=== PATIENT | female | born 1935 | race Caucasian/White ===

== ENCOUNTER → 2016-08-08 | Outpatient (CLI) | payer MEDICARE ==
[2015-12-12 12:45] VITALS: BP 169/84
[~2016-08-08] MED LIST: CALC600T4 PO; CHOL200024 PO; CHON250C PO; CLON0.1T PO; DIPH50CA25 PO; FERR-26 PO; FURO40TA4 PO; GLUCOSAMINE 1,1 EACH PO; HYDR12.58 PO; LEVO75TA PO; LISI10TA2 PO; LOSA100T6 PO; MELA3TAB PO; METO25PO2 MC; METO25TA4 PO; METO50TA2 PO; MULT-658 PO; POTA10TA5 PO; SENN1TAB70 PO; SIMV20TA3 PO; WARF-78 PO; WARF2.5T71 PO; WARF5TAB7 PO
[2016-08-08 13:59] LABS: BILIRUBIN,URINE NEGATIVE (NEG); GLUCOSE,URINE NEGATIVE (NEG); NITRITE,URINE NEGATIVE (NEG); PROTEIN,URINE NEGATIVE (NEG-TRACE); UROBILINOGEN,URINE 0.2 mg/dL (0.2 mg/dL)
[2016-08-08 14:07] LABS: BACTERIA,URINE 0 /HPF (0-FEW); RBC,URINE 0 /HPF (0-2); SQUAMOUS EPITHELIAL CELL,UR FEW /LPF
[2016-08-08 14:27] LABS: BASO % 1 % (0-3); EOS % 1 % (0-3); HEMATOCRIT 37.6 % (36.0-47.0); HEMOGLOBIN 12.2 g/dL (12.0-15.5); LYMPH # 1.2 x10^3/uL (1.0-4.8); LYMPH % 22 % (24-48); MEAN CORPUSCULAR HEMOGLOBIN 30 pg (25-35); MEAN CORPUSCULAR HGB CONC 33 g/dL (31-37); MEAN CORPUSCULAR VOLUME 93 fL (79-100); MONO % 7 % (0-9); NEUT % 69 % (31-73); PLATELET COUNT 159 x10^3/uL (140-400); RED BLOOD COUNT 4.02 x10^6/uL (3.50-5.40); RED CELL DISTRIBUTION WIDTH 14.2 % (11.5-14.5); WHITE BLOOD COUNT 5.4 x10^3/uL (4.0-11.0)
--- NOTE | 2016-08-08 14:27 | RAD ---
Indication: Preop for knee replacement surgery. Time of exam 1420 hours. Comparison is made with prior chest from 12/10/2015. The heart is enlarged but stable. A cardiac pacer has been placed since prior study. No pneumothorax is identified. The pulmonary vascularity is normal. There is no effusion. Impression: Cardiomegaly. No acute feature is detected.
[2016-08-08 14:36] LABS: INR 2.9 (0.8-1.1); PROTHROMBIN TIME PATIENT 28.8 SEC (11.7-14.0)
[2016-08-08 14:59] LABS: ALBUMIN 3.3 g/dL (3.4-5.0); CALCIUM 8.9 mg/dL (8.5-10.1); CREATININE 1.1 mg/dL (0.6-1.0); GFR 47.4; POTASSIUM 4.2 mmol/L (3.5-5.1)
== END | disposition home or self-care (01) ==
LOC: SURGPAT 12:47
PROVIDERS: ATTEND Orthopaedic Surgery
DX: Z01.818 Encounter for other preprocedural examination (principal); I51.7 Cardiomegaly
CPT/HCPCS: 36415; 71020; 80048; 81001; 82040; 85027; 85610; 85651; 85730; 87086; 87641

== ENCOUNTER 2016-08-23 11:19 | Inpatient (IN) | payer MEDICARE ==
--- NOTE | 2016-08-22 13:19 | PDOC1 ---
History and Physical Date of Admission Date of Admission DATE: 08/23/16 Identification/Chief Complaint Chief Complaint left knee osteoarthritis pain Problems: Source Source: Chart review History of Present Illness History of Present Illness Monique had right total knee arthroplasty performed on 05/12/15. She states that the right knee hurts a little but is otherwise working just fine. She is also here to discuss having total knee replacement on her left knee, which we had previously agreed to wait on until her syncope episodes were under control. She denies medication changes presently. 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 She has a history of atrial fibrillation. She is on warfarin. With her last total knee arthroplasty, we held her warfarin but did not do any bridging. She used meloxicam perioperatively last time. Past Medical History Cardiovascular: AFIB, CAD, HTN, Hyperlipidemia Pulmonary: No pertinent hx CENTRAL NERVOUS SYSTEM: Other GI: Diverticulosis Heme/Onc: Other Hepatobiliary: No pertinent hx Psych: No pertinent hx Musculoskeletal: low back pain, Osteoarthritis Rheumatologic: No pertinent hx Infectious disease: No pertinent hx Renal/: Other Endocrine: Hypothyroidism Past Surgical History Past Surgical History: Breast Biopsy, Cholecystectomy, Cataract Removal, Total knee replacement (right - 05/12/15), Hysterectomy, Other (cardiac stent - 2005) Family History Family History: Cancer, Coronary Artery Disease, Heart Disease, Hypertension, Stroke, Other (blood clots in daughter and son) Social History Smoke: No ALCOHOL: none Drugs: None Current Medications Current Medications Active Scripts Active Reported Melatonin 3 Mg Tablet 10 Mg PO HS Hydrochlorothiazide Tablet (Hydrochlorothiazide) 12.5 Mg Tablet 12.5 Mg PO PRN PRN Losartan Potassium 100 Mg Tablet 100 Mg PO HS Metoprolol Tartrate 50 Mg Tablet 50 Mg PO BID Coumadin (Warfarin Sodium) 5 Mg Tablet 1 Tab PO DAILY Stool Softener Tablet (Sennosides/Docusate Sodium) 1 Each Tablet 1 Each PO DAILY LAST DOSE GIVEN: DATE:05-15-15 TIME:9:00 a.m. NEXT DOSE DUE: DATE:05-16-15 TIME:9:00 a.m. Chondroitin Sulfate (Chondroitin Sulfate A) 250 Mg Capsule 250 Mg PO DAILY Not given while in hosp. May resume at home as directed. Glucosamine 1,500 Complex Cp (Gluc Scott/Chondro Scott A/Vit C/Mn) 1 Each Capsule 1 Each PO BID Not given while in hosp. May resume at home as directed D3 Dots (Cholecalciferol (Vitamin D3)) 2,000 Unit Tablet 2,000 Unit PO DAILY LAST DOSE GIVEN: DATE:05-15-15 TIME:9:00 a.m. NEXT DOSE DUE: DATE:05-16-15 TIME:9:00 a.m. Centrum Silver Tablet (Multivits-Min/Fa/Lycopene/Lut) 1 Each Tablet 1 Each PO DAILY LAST DOSE GIVEN: DATE:05-15-15 TIME:9:00 a.m. NEXT DOSE DUE: DATE:05-16-15 TIME:9:00 a.m. Calcium (Calcium Carbonate) 600 Mg Tablet 600 Mg PO BID Not given while in hosp. May resume at home as directed. Sleep Aid (Diphenhydramine Hcl) 50 Mg Capsule 50 Mg PO Not given while in hosp. May resume at home as directed as needed Synthroid (Levothyroxine Sodium) 75 Mcg Tablet 75 Mcg PO DAILY LAST DOSE GIVEN: DATE:05-15-15 TIME:9:00 a.m. NEXT DOSE DUE: DATE:05-16-15 TIME:9:00 a.m. Klor-Con 10 (Potassium Chloride) 10 Meq Tablet.er 10 Meq PO DAILY LAST DOSE GIVEN: DATE:05-15-15 TIME:9:00 a.m. NEXT DOSE DUE: DATE:05-16-15 TIME:9:00 a.m. Furosemide 40 Mg Tablet 40 Mg PO DAILY LAST DOSE GIVEN: DATE:05-15-15 TIME:9:00 a.m. NEXT DOSE DUE: DATE:05-16-15 TIME:9:00 a.m. Simvastatin 20 Mg Tablet 20 Mg PO HS LAST DOSE GIVEN: DATE:05-14-15 TIME:9:00 p.m. NEXT DOSE DUE: DATE:05-15-15 TIME:9:00 p.m. Allergies Allergies: Coded Allergies: Docusate Potassium (Verified Allergy, Intermediate, 08/08/16) Flurazepam HCl (Verified Allergy, Intermediate, 08/08/16) Penicillins (Verified Allergy, Intermediate, 08/08/16) Pentazocine Lactate (Verified Allergy, Intermediate, 08/08/16) casanthranol (Verified Allergy, Intermediate, 08/08/16) codeine (Verified Allergy, Intermediate, 08/08/16) EMPIRIN #3 desipramine HCl (Verified Allergy, Intermediate, 08/08/16) docusate sodium (Verified Allergy, Intermediate, 08/08/16) gadopentetate dimeglumine (Verified Allergy, Intermediate, 08/08/16) imipramine (Verified Allergy, Intermediate, 08/08/16) phenolphthalein (Verified Allergy, Intermediate, 08/08/16) propoxyphene HCl (Verified Allergy, Intermediate, 08/08/16) zolpidem tartrate (Verified Allergy, Intermediate, 08/08/16) latex (Verified Adverse Reaction, Intermediate, 08/08/16) UTI FROM THE LATEX CATHETER Physical Exam General: Alert, Oriented X3, Cooperative, No acute distress HEENT: Atraumatic, EOMI Lungs: Normal air movement Heart: RRR Abdomen: Soft Extremities: No clubbing, No cyanosis, Normal pulses, Other ( The left knee shows her mildly antalgic gait. There is varus alignment. No masses. No detectable effusion. Tenderness on the joint lines. Range of motion is 5-115 degrees. There is crepitus with range of motion, and pain at the extremes of motion. The knee is stable to varus and valgus stress without subluxation or laxity. Muscle strength is normal (5/5) for quadriceps and hamstrings, and muscle tone is normal. The skin is normal with no scars, rashes, lesions or ulcers. Light touch sensation is intact. No edema and no varicosities. Dorsalis pedis pulse is intact and capillary refill is normal. The right knee shows normal alignment, no masses and no effusion. No tenderness to palpation. Range of motion is 0-120 degrees, with typical total knee crepitus but no pain at the extremes of motion. The knee is stable to varus and valgus stress without subluxation or laxity. Muscle strength is normal (5/5) for quadriceps and hamstrings, and muscle tone is normal. The extensor mechanism is intact. The skin shows a well-healed midline scar from total knee arthroplasty. No drainage lesions or ulcers. Light touch sensation is intact. No edema and no varicosities. Dorsalis pedis pulse is intact and capillary refill is normal.) Skin: No rashes, No breakdown, No significant lesion Neuro: Normal speech, Sensation intact Psych/Mental Status: Mental status NL, Mood NL Images Images IMAGING REPORT Joint survey, hips knees and ankles Clinical information: Preoperative for total knee arthroplasty Comparison: None. Findings Bones: The angle between the right hip-ankle mechanical axis and the femoral shaft is 5. The angle between the left hip-ankle mechanical axis and the femoral shaft is 5 . There is a right total knee arthroplasty, and the mechanical line from the hip to the ankle crosses in the center of the right knee. The left knee shows varus alignment with the hip-ankle mechanical line crossing in the medial aspect of the left knee joint. Joints: The right knee has a total knee arthroplasty in good position. There is narrowing of the left knee joint medially. The hips and ankles show minimal degenerative changes. Soft tissue: Normal. Impression: Varus alignment of the left osteoarthritic knee. Right total knee arthroplasty in good position. The difference between the mechanical axis and femoral shaft anatomic axis is 5 bilaterally. Dictated and Signed Using Voice Recognition Software Yuriy Pinon MD VTE Prophylaxis Ordered VTE Prophylaxis Devices: Yes VTE Pharmacological Prophylaxi: Yes Assessment/Plan Assessment/Plan The left knee is now the painful one that limits her activity. She has tried nonoperative treatment without relief. She has done some home exercises, and had other nonoperative treatment. Her right total knee is doing well. Dr. Pinon recommended left knee arthroplasty despite her age of 81 years in the slightly increased risks associated with age. She does have atrial fibrillation, and we' ll need to get cardiac clearance. She is also having some recent blood pressure variation symptoms that will require clearance. We can schedule her left total knee arthroplasty at a mutually convenient date presumably in early July. We discussed the potential risks of infection, neurovascular injury, bleeding, blood clots, need for revision surgery, or other potential surgical or anesthetic complications. The parts for her right total knee done a year ago, include a size 5 femur (Legion) a size 4 Yessi II tibial base plate, and a 35 mm patella. All of her questions were answered and she desires to proceed at a mutually convenient date. PAMELA DIALLO August 22, 2016 13:19
[~2016-08-23] VITALS: Ht 170.2 cm; Wt 100.2 kg
[2016-08-23] VITALS (7 sets, daily range): BP systolic 129–149; BP diastolic 54–67
[~2016-08-23 11:19] MED LIST changes: +ACETAMINOPHEN 500 MG TABLET PO PRN; +CLINDAMYCIN 600MG PREMIX 50 ML IV PRN; +HYDROmorphone 2 MG/ML VIAL IV PRN; +IV RINGERS,LACTATED 1000ML 1,000 ML IV SCH; +LIDOCAINE 1% 1 ML SYRINGE. ID PRN; +MELOXICAM 7.5 MG TABLET PO PRN; +MORPHINE SULFATE 2 MG/ML DISP.SYRIN. IV PRN; +ONDANSETRON PF 4 MG/2 ML VIAL. IV PRN; +PROCHLORPERAZINE 10 MG/2 ML VIAL. IV PRN; +TOBRAMYCIN POWDER 1.2 GM VIAL. ONE; +TRANEXAMIC ACID 1,000 MG in IV NS 50ML -- 1ST BAG INJ ONE; +TRANEXAMIC ACID 1,000 MG in IV NS 50ML -- 2ND BAG INJ ONE; +VANCOMYCIN 1 GM VIAL. ONE; +fentaNYL PF VIAL 100 MCG/2 ML VIAL IV PRN
[2016-08-23] MEDS ORDERED: PROPOFOL 20 ML IV ONE (12:17)
[2016-08-23] MEDS ORDERED: LIDOCAINE 2% PF Vial for OR 5 ML VIAL. ONE (12:17)
[2016-08-23] MEDS ORDERED: DEXAMETHASONE SOD PHOS 20 MG/5 ML VIAL. ONE (12:17)
[2016-08-23] MEDS ORDERED: MELO15TA6 PO (12:18)
[2016-08-23] MEDS ORDERED: fentaNYL PF VIAL 100 MCG/2 ML VIAL ONE ×2 (12:18→13:56)
[2016-08-23] MEDS ORDERED: ROCURONIUM 50 MG/5 ML VIAL. ONE (12:18)
[2016-08-23] MEDS ORDERED: FAMOTIDINE 20 MG/2 ML VIAL ONE (12:18)
[2016-08-23] MEDS ORDERED: ONDANSETRON PF 4 MG/2 ML VIAL. ONE (12:18)
[2016-08-23 12:24] LABS: INR 1.2 (0.8-1.1); PROTHROMBIN TIME PATIENT 14.4 SEC (11.7-14.0)
[2016-08-23] MEDS ORDERED: hydrALAZINE 20 MG/ML VIAL. ONE (13:30)
[2016-08-23] MEDS ORDERED: 0.9 % SODIUM CHLORIDE 50 ML VIAL. IJ ONE (13:30)
[2016-08-23] MEDS ORDERED: NEOSTIGMINE 10 MG/10 ML VIAL. ONE (14:05)
[2016-08-23] MEDS ORDERED: GLYCOPYRROLATE 1 MG/5 ML VIAL. ONE (14:06)
[2016-08-23] MEDS ORDERED: SEVOFLURANE 61 TO 120 MINUTES. IH ONE (14:24)
--- NOTE | 2016-08-23 14:48 | PDOC4 ---
Operative Note Operative Note Date of Procedure: August 23, 2016 Pre-Op Diagnosis: Osteoarthritis left knee Post-Op Diagnosis: Osteoarthritis left knee Procedure: left total knee arthroplasty Surgeon: Craig Pinon MD Parts Manager: Sera Lambert PA-C Anesthesia: General EBL: 100 mL Specimens Obtained: left knee bone and soft tissue Complications: none Implant Company: [employer] Drains: Hemovac plus pain catheter Tourniquet time: 53 Minutes Tourniquet Pressure: 350 mm Hg Indications for Procedure: Arthritis pain unrelieved by nonoperative management. Findings: Severe osteoarthritis with bone on bone contact in all three compartments Implants used: Size 4 left bicruciate stabilized Journey II BCS cobalt chrome femoral component, size 4 left Journey nonporous tibial baseplate, size 3 -4 10 mm left Journey II BCS XLPE articular insert, 35 mm oval Yessi II resurfacing patellar component Procedure in Detail: The patient was identified in the preoperative holding area, and the correct left extremity was marked by me. The patient was taken to the operating room where the patient was anesthetized by the Department of Anesthesia. Preoperative antibiotics were given intravenously. Tranexamic acid 1 g was given intravenously for intraoperative hemostasis. A "time-out" procedure was performed. The patient was positioned supine on the operative table with a tourniquet on the upper thigh. The limb was thoroughly prepped and draped in sterile fashion. An impervious stockinet and adhesive drape were used such that the skin was entirely covered. An Mart leg luke was used. The operating team wore personal exhaust-ventilated hoods. The tourniquet was inflated to 350 mm Hg. A midline skin incision was made with a scalpel using the patella and tibial tubercle as landmarks. Electrocautery was used for hemostasis. My fundraising assistant used rake retractors. A medial parapatellar arthrotomy incision was used with extension into the distal quadriceps tendon. The patella was retracted laterally and Hohmann retractors were now used by my fundraising assistant. Excess synovium, the menisci, and the cruciate ligaments were resected sharply. The patella was assessed and excess synovium and osteophytes around the patellar articulation were removed. The patella was measured with a caliper, cut freehand with a saw using caliper measurements, sized, and then drilled for an oval three-pegged patella component. Periarticular injection was used in the suprapatellar pouch and distal quadriceps muscle. Whitesides's line was assessed on the femur. An intra-medullary 5 degree cutting guide was pinned to the femur, and a distal femoral cut was made with an oscillating saw. An additional 2 mm resection was used due to the deep femoral sulcus, and deficient condyle.My fundraising assistant held Hohmann retractors and an [place] retractor to protect the medial and lateral collateral ligaments, the patellar tendon, the skin and the other soft tissues. An anterior referencing guide was applied with external rotation of Choose an item. to match Whitesides line. A 5-in-1 Journey II cutting guide was then applied and pinned to the femur. The posterior, anterior, and all chamfer cuts were made with the oscillating saw. An extramedullary guide was pinned to the tibia and rotational alignment and the planned resection thickness assessed. An external alignment loc was used to verify the planned cut in the varus-valgus plane and regarding posterior slope referencing the tibial tubercle, the tibial shaft, the ankle joint, and the second metatarsal. The upper tibia was cut made with an oscillating saw. My fundraising assistant held Hohmann retractors and a posterior cruciate ligament retractor to protect the medial and lateral collateral ligaments, the patellar tendon, the skin, the peroneal nerve and the other soft tissues. The upper tibia was sized with a trial baseplate. The posterior compartment was cleared of osteophytes and loose bodies, and posterior capsule released. Annamarie-articular injection was used in the posterior compartment. The box cut for a posterior stabilized component was made. A preliminary reduction was performed with a trial femur, trial tibial baseplate and trial polyethylene. Soft-tissue balancing was now performed, and extension and rotation of the alignments was checked using a guide loc in the tibial trial and a guide pin in the femur. No additional releases were required. The stability was assessed using different thicknesses of tibial articular surface to find satisfactory stability and good range of motion. The rotation of the tibial component was marked on the upper tibia. Final trial reduction was now performed verifying patella tracking and tibiofemoral stability and alignment. The tibia preparation was completed with a drill, saw, and fin punch at the previously noted rotation. The final implants were verified and opened. Outer gloves were changed by the operating team. The bone cuts were washed thoroughly with the realSociable InterPulse device and dried. Two packages of Palacos bone cement were mixed in powdered form with 1 gm of Vancomycin and 1.2 g tobramycin, then vacuum-mixed with the monomer, and placed into a cement gun. The cut surfaces of the bone were thoroughly dried with Romano-tip suction and with laparotomy sponges for cement interdigitation. The final components were cemented into place. The knee was kept at full extension while the cement hardened, and excess cement was removed. Tranexamic acid 1 g was redosed intravenously for additional intraoperative hemostasis. A final periarticular injection was used for pain relief. The tourniquet was released, and electrocautery was used for hemostasis. A final check of [id number] and stability was made, and the polyethylene implant final size was chosen. The polyethylene implant was secured to the tibial baseplate, and the knee was reduced a final time. Thorough irrigation was used. Hemovac and pain catheter were used.The arthrotomy was closed with interrupted [id number] #1 PDS suture. The arthrotomy incision was then run with #1 STRATAFIX Symmetric PDS Plus Knotless suture. The subcutaneous tissues were closed with #2-0 Vicryl by my fundraising assistant. The skin was reapproximated with STRATAFIX Spiral MONOCRYL Plus Knotless suture by my fundraising assistant. The skin incision was then covered and reinforced with Dermabond Prineo mesh skin closure dressing. A bulky sterile gauze dressing was applied. Needle and sponge counts were correct. CRAIG PINON MD August 23, 2016 14:48
[2016-08-23] MEDS: fentaNYL PF VIAL 100 MCG/2 ML VIAL IV PRN ×3 (14:58→15:56)
[2016-08-23] MEDS ORDERED: traMADol 50 MG TABLET PO PRN ×2 (15:00)
[2016-08-23] MEDS ORDERED: METOCLOPRAMIDE HCL 10 MG/2 ML VIAL. IV PRN (15:00)
[2016-08-23] MEDS ORDERED: HYDROcodone/APAP 10/325 1 TAB TABLET PO PRN (15:00)
[2016-08-23] MEDS ORDERED: CALCIUM CARBONATE 500 MG TAB.CHEW PO PRN (15:00)
[2016-08-23] MEDS ORDERED: oxyCODONE/APAP 7.5/325 1 TAB TABLET PO PRN (15:00)
[2016-08-23] MEDS ORDERED: 0.9 % SODIUM CHLORIDE 10 ML DISP.SYRIN. IV PRN (15:00)
[2016-08-23] MEDS ORDERED: MORPHINE SULFATE 2 MG/ML DISP.SYRIN. IV PRN (15:00)
[2016-08-23] MEDS ORDERED: MORPHINE SULFATE 10 MG/ML VIAL. IV PRN (15:00)
[2016-08-23] MEDS ORDERED: MORPHINE SULFATE 4 MG/ML DISP.SYRIN. IV PRN ×2 (15:00)
[2016-08-23] MEDS ORDERED: fentaNYL PF VIAL 100 MCG/2 ML VIAL IV PRN ×2 (15:00)
[2016-08-23] MEDS ORDERED: DEXTROSE 50% 25 GM / 50ML DISP.SYRIN. IV PRN (15:00)
[2016-08-23] MEDS ORDERED: diphenhydrAMINE 50 MG/ML VIAL IV PRN (15:00)
[2016-08-23] MEDS ORDERED: PROCHLORPERAZINE 10 MG/2 ML VIAL. IV PRN (15:00)
[2016-08-23] MEDS ORDERED: oxyCODONE/APAP 5/325 1 TAB TABLET PO PRN (15:00)
[2016-08-23] MEDS ORDERED: ACETAMINOPHEN 325 MG TABLET. PO PRN (15:00)
[2016-08-23] MEDS ORDERED: PROCHLORPERAZINE 5 MG TABLET. PO PRN (15:00)
--- NOTE | 2016-08-23 15:08 | EKG ---
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
--- NOTE | 2016-08-23 15:56 | RAD ---
Portable left knee, 2 views, 08/23/2016: History: Postop evaluation A total knee prosthesis is in place in satisfactory position. A surgical drain overlie the operative site anteriorly. There is no evidence of a retained surgical instrument, needle or radiopaque sponge on these 2 views. IMPRESSION: No significant postoperative abnormality is detected.
[2016-08-23] MEDS: FERROUS SULFATE 325 MG TABLET. PO SCH (18:08)
[2016-08-23] MEDS: WARFARIN 5 MG TABLET. PO SCH (18:08)
[2016-08-23] MEDS: CLINDAMYCIN 600MG PREMIX 50 ML IV SCH ×2 (18:13→23:36)
[2016-08-23] MEDS ORDERED: NON FORMULARY ITEM (Melatonin 10 MG) PO SCH (21:00)
[2016-08-23] MEDS ORDERED: CELECOXIB 200 MG CAPSULE. PO SCH (21:00)
[2016-08-23] MEDS: SIMVASTATIN 20 MG TABLET PO SCH (21:13)
[2016-08-23] MEDS: METOPROLOL TART IMMED RELEASE 50 MG TABLET. PO SCH (21:14)
[2016-08-23] MEDS: LOSARTAN POTASSIUM 50 MG TABLET. PO SCH (21:15)
[2016-08-23] MEDS: IV DEXTROSE 5 %-0.45 % NACL 1,000 ML IV SCH (23:17)
[2016-08-24] MEDS: IV DEXTROSE 5 %-0.45 % NACL 1,000 ML IV SCH (02:30)
[2016-08-24 03:00] VITALS: BP 139/57
[2016-08-24 03:40] LABS: HEMATOCRIT 30.9 % (36.0-47.0); HEMOGLOBIN 10.3 g/dL (12.0-15.5)
[2016-08-24 04:04] LABS: INR 1.3 (0.8-1.1); PROTHROMBIN TIME PATIENT 15.1 SEC (11.7-14.0)
[2016-08-24] MEDS: CLINDAMYCIN 600MG PREMIX 50 ML IV SCH (05:46)
[2016-08-24 06:00] VITALS: BP 129/74
[2016-08-24] MEDS ORDERED: MAGNESIUM HYDROXIDE 2,400 MG/30 ML ORAL.SUSP. PO PRN (06:00)
[2016-08-24] MEDS: LEVOTHYROXINE 75 MCG TABLET PO SCH (07:05)
[2016-08-24] MEDS: FERROUS SULFATE 325 MG TABLET. PO SCH ×2 (08:02→16:45)
[2016-08-24] MEDS: POTASSIUM CHLORIDE 10 MEQ TABLET.ER. PO SCH (08:02)
[2016-08-24] MEDS: FUROSEMIDE 40 MG TABLET. PO SCH (08:02)
[2016-08-24] MEDS: SENNOSIDES 8.6 MG TABLET PO SCH (08:03)
[2016-08-24] MEDS: MELOXICAM 7.5 MG TABLET PO SCH (08:03)
[2016-08-24] MEDS: CHOLECALCIFEROL (VITAMIN D3) 1,000 UNIT TABLET PO SCH (08:03)
[2016-08-24] MEDS: MULTIVITAMIN with MINERAL TABLET. PO SCH (08:04)
[2016-08-24] MEDS: HYDROcodone/APAP 7.5/325MG 1 TAB TABLET PO PRN ×3 (08:04→20:36)
[2016-08-24] MEDS: METOPROLOL TART IMMED RELEASE 50 MG TABLET. PO SCH ×2 (08:05→20:38)
[2016-08-24] MEDS ORDERED: hydroCHLOROthiazide 12.5 MG CAPSULE PO PRN (09:00)
--- NOTE | 2016-08-24 09:48 | PDOC ---
PROGRESS NOTES Subjective Subjective No complaints. Doing well. Objective Vital Signs Vital Signs Date Time Temp Pulse Resp B/P (MAP) Pulse Ox O2 Delivery O2 Flow Rate FiO2 08/24/16 09:05 16 Room Air 08/24/16 08:05 72 129/74 08/24/16 06:00 97.8 94 2.0 97.8 Physical Exam Dressing dry and intact. Pain catheter and Hemovac in place. Good dorsiflexion and plantarflexion of the foot with no evidence of neurovascular injury or DVT. Calves are soft and non-tender. Negative Homans. Peripheral pulses and light touch sensation intact. Labs Laboratory Tests Test 08/23/16 12:00 08/24/16 02:57 Prothrombin Time 14.4 SEC (11.7-14.0) 15.1 SEC (11.7-14.0) Prothromb Time International Ratio 1.2 (0.8-1.1) 1.3 (0.8-1.1) Activated Partial Thromboplast Time 32 SEC (24-38) Hemoglobin 10.3 g/dL (12.0-15.5) Hematocrit 30.9 % (36.0-47.0) Mean Corpuscular Hemoglobin Concent 34 g/dL (31-37) Laboratory Tests Test 08/23/16 12:00 08/24/16 02:57 Prothrombin Time 14.4 SEC (11.7-14.0) 15.1 SEC (11.7-14.0) Prothromb Time International Ratio 1.2 (0.8-1.1) 1.3 (0.8-1.1) Activated Partial Thromboplast Time 32 SEC (24-38) Hemoglobin 10.3 g/dL (12.0-15.5) Hematocrit 30.9 % (36.0-47.0) Mean Corpuscular Hemoglobin Concent 34 g/dL (31-37) Imaging Postoperative x-rays reviewed by me, showing satisfactory total knee replacement , with no apparent complications. Assessment Assessment POD #1 TKA Problems: Plan Plan of Care Continue POC including DVT prophylaxis and physical therapy PAMELA DIALLO August 24, 2016 09:48
[2016-08-24] MEDS ORDERED: BISACODYL 10 MG SUPP.RECT. PR PRN (16:00)
[2016-08-24] MEDS: WARFARIN 5 MG TABLET. PO SCH (16:45)
[2016-08-24 17:58] VITALS: BP 132/65
[2016-08-24] MEDS: LOSARTAN POTASSIUM 50 MG TABLET. PO SCH (20:37)
[2016-08-24] MEDS: SIMVASTATIN 20 MG TABLET PO SCH (20:38)
[2016-08-25] MEDS: HYDROcodone/APAP 7.5/325MG 1 TAB TABLET PO PRN ×4 (01:06→21:00)
[2016-08-25 05:29] LABS: HEMATOCRIT 31.1 % (36.0-47.0); HEMOGLOBIN 10.5 g/dL (12.0-15.5)
[2016-08-25 05:32] LABS: INR 1.4 (0.8-1.1); PROTHROMBIN TIME PATIENT 16.3 SEC (11.7-14.0)
[2016-08-25 05:40] VITALS: BP 139/66
[2016-08-25] MEDS: LEVOTHYROXINE 75 MCG TABLET PO SCH (06:06)
[2016-08-25] MEDS: POTASSIUM CHLORIDE 10 MEQ TABLET.ER. PO SCH (08:10)
[2016-08-25] MEDS: MULTIVITAMIN with MINERAL TABLET. PO SCH (08:11)
[2016-08-25] MEDS: MELOXICAM 7.5 MG TABLET PO SCH (08:11)
[2016-08-25] MEDS: FERROUS SULFATE 325 MG TABLET. PO SCH ×2 (08:11→16:25)
[2016-08-25] MEDS: CHOLECALCIFEROL (VITAMIN D3) 1,000 UNIT TABLET PO SCH (08:11)
[2016-08-25] MEDS: SENNOSIDES 8.6 MG TABLET PO SCH (08:17)
[2016-08-25] MEDS: FUROSEMIDE 40 MG TABLET. PO SCH (08:18)
[2016-08-25] MEDS: METOPROLOL TART IMMED RELEASE 50 MG TABLET. PO SCH ×2 (08:22→21:00)
[2016-08-25] MEDS: WARFARIN 5 MG TABLET. PO SCH (16:25)
--- NOTE | 2016-08-25 17:30 | PDOC ---
PROGRESS NOTES Subjective Subjective Doing well. Only reports mild pain increase from yesterday. Objective Vital Signs Vital Signs Date Time Temp Pulse Resp B/P (MAP) Pulse Ox O2 Delivery O2 Flow Rate FiO2 08/25/16 12:31 Room Air 08/25/16 08:22 72 136/72 08/25/16 05:40 97.9 20 92 97.9 08/24/16 08:00 2.0 Physical Exam Expected swelling. Pain catheter and drain have been removed. Dressing with spotty drainage only. Calf soft and nontender. Negative homans sign. Good AROM ankle. Peripheral pulses and light touch sensation intact. Labs Laboratory Tests Test 08/24/16 02:57 08/25/16 04:50 Hemoglobin 10.3 g/dL (12.0-15.5) 10.5 g/dL (12.0-15.5) Hematocrit 30.9 % (36.0-47.0) 31.1 % (36.0-47.0) Mean Corpuscular Hemoglobin Concent 34 g/dL (31-37) 34 g/dL (31-37) Prothrombin Time 15.1 SEC (11.7-14.0) 16.3 SEC (11.7-14.0) Prothromb Time International Ratio 1.3 (0.8-1.1) 1.4 (0.8-1.1) Laboratory Tests Test 08/25/16 04:50 Hemoglobin 10.5 g/dL (12.0-15.5) Hematocrit 31.1 % (36.0-47.0) Mean Corpuscular Hemoglobin Concent 34 g/dL (31-37) Prothrombin Time 16.3 SEC (11.7-14.0) Prothromb Time International Ratio 1.4 (0.8-1.1) Imaging X-rays independently reviewed by me and show satisfactory TKA alignment and no apparent complications. Assessment Assessment POD 2 TKA Problems: Plan Plan of Care Continue DVT prophylaxis and physical therapy. Planned discharge tomorrow. Office F/U in 10-14 days. CRAIG BOWMAN MD August 25, 2016 17:30
[2016-08-25 17:59] VITALS: BP 155/61
[2016-08-25] MEDS: SIMVASTATIN 20 MG TABLET PO SCH (21:00)
[2016-08-25] MEDS: LOSARTAN POTASSIUM 50 MG TABLET. PO SCH (21:00)
[2016-08-26 04:33] LABS: INR 1.5 (0.8-1.1); PROTHROMBIN TIME PATIENT 17.5 SEC (11.7-14.0)
[2016-08-26] MEDS: HYDROcodone/APAP 7.5/325MG 1 TAB TABLET PO PRN ×2 (04:40→12:26)
[2016-08-26] MEDS: LEVOTHYROXINE 75 MCG TABLET PO SCH (04:40)
[2016-08-26 06:16] VITALS: BP 148/80
[2016-08-26] MEDS: FERROUS SULFATE 325 MG TABLET. PO SCH (08:22)
[2016-08-26] MEDS: POTASSIUM CHLORIDE 10 MEQ TABLET.ER. PO SCH (08:22)
[2016-08-26] MEDS: MULTIVITAMIN with MINERAL TABLET. PO SCH (08:23)
[2016-08-26] MEDS: MELOXICAM 7.5 MG TABLET PO SCH (08:23)
[2016-08-26] MEDS: CHOLECALCIFEROL (VITAMIN D3) 1,000 UNIT TABLET PO SCH (08:23)
[2016-08-26] MEDS: SENNOSIDES 8.6 MG TABLET PO SCH (08:23)
[2016-08-26] MEDS: FUROSEMIDE 40 MG TABLET. PO SCH (08:29)
[2016-08-26] MEDS: METOPROLOL TART IMMED RELEASE 50 MG TABLET. PO SCH (08:31)
[2016-08-26 09:28] LABS: HEMATOCRIT 30.1 % (36.0-47.0); HEMOGLOBIN 10.2 g/dL (12.0-15.5)
[2016-08-26 11:04] VITALS: BP 139/79
--- NOTE | 2016-08-26 14:09 | PDOC ---
PROGRESS NOTES Subjective Subjective Doing well. Planning for discharge later today after PT. Objective Vital Signs Vital Signs Date Time Temp Pulse Resp B/P (MAP) Pulse Ox O2 Delivery O2 Flow Rate FiO2 08/26/16 12:26 Room Air 08/26/16 11:04 97.9 78 20 139/79 (99) 97 97.9 08/25/16 20:16 2.0 Physical Exam Expected swelling. Prineo dressing intact and dry. Calf soft and nontender. Negative Homans. Good AROM ankle. Peripheral pulses and light touch sensation intact. Labs Laboratory Tests Test 08/25/16 04:50 08/26/16 03:30 Hemoglobin 10.5 g/dL (12.0-15.5) 10.2 g/dL (12.0-15.5) Hematocrit 31.1 % (36.0-47.0) 30.1 % (36.0-47.0) Mean Corpuscular Hemoglobin Concent 34 g/dL (31-37) 34 g/dL (31-37) Prothrombin Time 16.3 SEC (11.7-14.0) 17.5 SEC (11.7-14.0) Prothromb Time International Ratio 1.4 (0.8-1.1) 1.5 (0.8-1.1) Laboratory Tests Test 08/26/16 03:30 Hemoglobin 10.2 g/dL (12.0-15.5) Hematocrit 30.1 % (36.0-47.0) Mean Corpuscular Hemoglobin Concent 34 g/dL (31-37) Prothrombin Time 17.5 SEC (11.7-14.0) Prothromb Time International Ratio 1.5 (0.8-1.1) Assessment Assessment POD 3 TKA Problems: Plan Plan of Care Discharge later today, to home. Continue DVT prophylaxis and physical therapy. F/U 10-14 days. CRAIG BOWMAN MD August 26, 2016 14:09
--- NOTE | 2016-08-26 14:10 | PDOC3 ---
Discharge Summary Visit Information Date of Admission: August 23, 2016 Date of Discharge: August 26, 2016 Admitting Diagnosis: left knee osteoarthritis pain Brief Hospital Course Allergies Allergies Coded Allergies Type Severity Reaction Last Updated Verified Docusate Potassium Allergy Intermediate 08/23/16 Yes Flurazepam HCl Allergy Intermediate 08/23/16 Yes Penicillins Allergy Intermediate 08/23/16 Yes Pentazocine Lactate Allergy Intermediate 08/23/16 Yes casanthranol Allergy Intermediate 08/23/16 Yes codeine Allergy Intermediate 08/23/16 Yes desipramine HCl Allergy Intermediate 08/23/16 Yes docusate sodium Allergy Intermediate 08/23/16 Yes gadopentetate dimeglumine Allergy Intermediate 08/23/16 Yes imipramine Allergy Intermediate 08/23/16 Yes phenolphthalein Allergy Intermediate 08/23/16 Yes propoxyphene HCl Allergy Intermediate 08/23/16 Yes zolpidem tartrate Allergy Intermediate 08/23/16 Yes latex Adverse Reaction Intermediate 08/23/16 Yes Vital Signs Vital Signs Date Time Temp Pulse Resp B/P (MAP) Pulse Ox O2 Delivery O2 Flow Rate FiO2 08/26/16 12:26 Room Air 08/26/16 11:04 97.9 78 20 139/79 (99) 97 97.9 08/25/16 20:16 2.0 Lab Results Laboratory Tests Test 08/25/16 04:50 08/26/16 03:30 Hemoglobin 10.5 g/dL (12.0-15.5) 10.2 g/dL (12.0-15.5) Hematocrit 31.1 % (36.0-47.0) 30.1 % (36.0-47.0) Mean Corpuscular Hemoglobin Concent 34 g/dL (31-37) 34 g/dL (31-37) Prothrombin Time 16.3 SEC (11.7-14.0) 17.5 SEC (11.7-14.0) Prothromb Time International Ratio 1.4 (0.8-1.1) 1.5 (0.8-1.1) Laboratory Tests Test 08/26/16 03:30 Hemoglobin 10.2 g/dL (12.0-15.5) Hematocrit 30.1 % (36.0-47.0) Mean Corpuscular Hemoglobin Concent 34 g/dL (31-37) Prothrombin Time 17.5 SEC (11.7-14.0) Prothromb Time International Ratio 1.5 (0.8-1.1) Brief Hospital Course 81 year old female who presented with knee osteoarthritis, for elective total knee arthroplasty. The patient underwent total knee arthroplasty under general anesthesia the day of admission. Perioperative antibiotics and DVT prophylaxis were used. Postoperatively physical therapy and case management were consulted. The patient progressed and is stable for discharge. Discharge Information Condition at Discharge: Stable Disposition/Orders: D/C to Home w/ HH Scheduled Calcium Carbonate (Calcium), 600 MG PO BID, (Reported) Cholecalciferol (Vitamin D3) (D3 Dots), 2,000 UNIT PO DAILY, (Reported) Chondroitin Sulfate A (Chondroitin Sulfate), 250 MG PO DAILY, (Reported) Furosemide (Furosemide), 40 MG PO DAILY, (Reported) Gluc Scott/Chondro Scott A/Vit C/Mn (Glucosamine 1,500 Complex Cp), 1 EACH PO BID, ( Reported) Levothyroxine Sodium (Synthroid), 75 MCG PO DAILY, (Reported) Losartan Potassium (Losartan Potassium), 100 MG PO HS, (Reported) Melatonin (Melatonin), 10 MG PO HS, (Reported) Meloxicam (Mobic), 1 TAB PO 1X, (Reported) Metoprolol Tartrate (Metoprolol Tartrate), 50 MG PO BID, (Reported) Multivits-Min/Fa/Lycopene/Lut (Centrum Silver Tablet), 1 EACH PO DAILY, ( Reported) Potassium Chloride (Klor-Con 10), 10 MEQ PO DAILY, (Reported) Sennosides/Docusate Sodium (Stool Softener Tablet), 1 EACH PO DAILY, (Reported) Simvastatin (Simvastatin), 20 MG PO HS, (Reported) Warfarin Sodium (Coumadin), 1 TAB PO DAILY, (Reported) Scheduled PRN Hydrochlorothiazide (Hydrochlorothiazide Tablet), 12.5 MG PO PRN PRN for SEE COMMENTS, (Reported) Miscellaneous Medications Diphenhydramine Hcl (Sleep Aid), 50 MG PO, (Reported) Patient Instructions Patient Instructions Patient Instructions Continue to WBAT with walker. Keep dressing dry and intact. F/U with [facility] in 10-14 days. Call for appointment. Physical therapy for TKA Continue DVT prophylaxis. Coumadin clinic for dosing. PAMELA DIALLO August 26, 2016 14:10
[2016-08-26] MEDS: WARFARIN 5 MG TABLET. PO SCH (15:18)
--- NOTE | 2016-08-26 16:26 | PATHOLOGY ---
PATHOLOGY REPORT * * * * * * * * FINAL DIAGNOSIS: Segments of bone and soft tissue, left total knee arthroplasty: - Advanced degenerative arthritis. REPORT ELECTRONICALLY SIGNED BY: Jorge Adkins M.D. DATE/TIME: 08/26/2016 16:25 * * * * * * * * GROSS PATHOLOGY: Received in formalin labeled "Monique Guerrero, left knee bone and tissue," are multiple segments of bone, including tibial plateau, measuring 9.8 x 7.6 x 2.8 cm in aggregate dimensions admixed with soft tissue; meniscus is present. The specimen shows focal eburnation of the articular surfaces. Pattern Cutter sections of bone and soft tissue are submitted in cassette A1, following decalcification. (CAA; 08/25/2016) INITIAL CPT CODE(S): A; 32643, 68447 Professional services [place] [place] [address] Technical services performed by [facility] at [address] [place] [address], [facility] [address], [place] [address]. SPECIMEN(S) RECEIVED: A.Left knee bone and tissue CLINICAL HISTORY: Left knee osteoarthritis, pain PATIENT: MONIQUE GUERRERO /AGE: 11 1935 (Age: 81) PATIENT #: [id number] ALT CASE #: SPECIMEN COLLECTION DATE: 08/23/2016 SPECIMEN RECEIVED DATE: 08/24/2016 [facility] - [address] [place] [address] - PHONE: [phone] * * * END OF REPORT * * *
== END 2016-08-26 15:00 | disposition home health service (06) | DRG 470 ==
LOC: OPSVCIP 11:19 → 4 SOUTHEST 16:25
PROVIDERS: ADMIT Orthopaedic Surgery; ATTEND Orthopaedic Surgery
PROC: 0SRD0J9 Replacement of Left Knee Joint with Synthetic Substitute, Cemented, Open Approach (ICD-10-PCS; principal; 2016-08-23 12:45)
DX: M17.12 Unilateral primary osteoarthritis, left knee (principal); E03.9 Hypothyroidism, unspecified; E78.5 Hyperlipidemia, unspecified; I10 Essential (primary) hypertension; I25.10 Atherosclerotic heart disease of native coronary artery without angina pectoris; I48.91 Unspecified atrial fibrillation; Z96.651 Presence of right artificial knee joint; Z95.5 Presence of coronary angioplasty implant and graft; Z90.49 Acquired absence of other specified parts of digestive tract; Z90.710 Acquired absence of both cervix and uterus; Z98.49 Cataract extraction status, unspecified eye; Z88.0 Allergy status to penicillin; Z88.8 Allergy status to other drugs, medicaments and biological substances; Z88.6 Allergy status to analgesic agent; Z91.040 Latex allergy status; Z82.49 Family history of ischemic heart disease and other diseases of the circulatory system; Z82.3 Family history of stroke
CPT/HCPCS: 36415; 73560; 85014; 85018; 85610; 85730; 86850; 86900; 86901; 88305; 88311; 93005; C1713; J0171; J0360; J1100; J1885; J2405; J2704; J2710; J2795; J3010; J3260; J3370; J3490; J7030; J7120; S0028; 97116; 97150; 97530; 97535; C1769

== ENCOUNTER 2017-10-01 10:45 | Emergency (ER) | payer MEDICARE ==
[2017-10-01 11:22] LABS: ADD MAN DIFF? NO
[2017-10-01 11:30] LABS: BASO % 1 % (0-3); EOS # 0.1 x10^3/uL (0.0-0.7); EOS % 2 % (0-3); HEMATOCRIT 39.9 % (36.0-47.0); HEMOGLOBIN 13.1 g/dL (12.0-15.5); LYMPH # 1.4 x10^3/uL (1.0-4.8); LYMPH % 26 % (24-48); MEAN CORPUSCULAR HEMOGLOBIN 31 pg (25-35); MEAN CORPUSCULAR HGB CONC 33 g/dL (31-37); MEAN CORPUSCULAR VOLUME 93 fL (79-100); MONO # 0.5 x10^3/uL (0.0-1.1); MONO % 9 % (0-9); NEUT # 3.3 x10^3uL (1.8-7.7); NEUT % 63 % (31-73); PLATELET COUNT 156 x10^3/uL (140-400); RED BLOOD COUNT 4.28 x10^6/uL (3.50-5.40); RED CELL DISTRIBUTION WIDTH 14.5 % (11.5-14.5); WHITE BLOOD COUNT 5.2 x10^3/uL (4.0-11.0)
[2017-10-01 11:32] LABS: ANION GAP 6 (6-14); BLOOD UREA NITROGEN 24 mg/dL (7-20); CALCIUM 8.5 mg/dL (8.5-10.1); CARBON DIOXIDE 31 mmol/L (21-32); CHLORIDE 106 mmol/L (98-107); CREATININE 1.1 mg/dL (0.6-1.0); GFR 47.3; GLUCOSE 89 mg/dL (70-99); POTASSIUM 4.3 mmol/L (3.5-5.1); SODIUM 143 mmol/L (136-145)
[2017-10-01] MEDS: ASPIRIN CHEWABLE 81 MG TABLET. PO (11:38)
[2017-10-01 11:42] LABS: TROPONINI < 0.017 ng/mL (0.000-0.055)
[2017-10-01 11:46] LABS: INR 2.4 (0.8-1.1); PARTIAL THROMBOPLASTIN TIME 37 SEC (24-38)
[2017-10-01 13:58] LABS: TROPONINI < 0.017 ng/mL (0.000-0.055)
[2017-10-01] MEDS: cloNIDine HCL 0.1 MG TABLET PO (15:23)
== END 2017-10-01 15:20 | disposition home or self-care (01) ==
LOC: ER 10:45
DX: R07.89 Other chest pain (principal); E78.00 Pure hypercholesterolemia, unspecified; I48.91 Unspecified atrial fibrillation; I10 Essential (primary) hypertension; E03.9 Hypothyroidism, unspecified; Z95.5 Presence of coronary angioplasty implant and graft; Z95.0 Presence of cardiac pacemaker; Z88.0 Allergy status to penicillin; Z88.5 Allergy status to narcotic agent; Z88.8 Allergy status to other drugs, medicaments and biological substances; Z91.040 Latex allergy status
CPT/HCPCS: 36415; 71046; 80048; 84484; 85025; 85610; 85730; 93005; 99285-25

== ENCOUNTER → 2019-03-25 | Outpatient (CLI) | payer MEDICARE ==
[2017-10-01 15:23] VITALS: BP 205/88
[~2019-03-25] MED LIST changes: +ACET325T9 PO; -ACETAMINOPHEN 500 MG TABLET PO PRN; +CLIN300C8 PO; -CLINDAMYCIN 600MG PREMIX 50 ML IV PRN; -FERR-26 PO; +FERR325T14 PO; -HYDROmorphone 2 MG/ML VIAL IV PRN; -IV RINGERS,LACTATED 1000ML 1,000 ML IV SCH; -LIDOCAINE 1% 1 ML SYRINGE. ID PRN; +LOSA100T14 PO; -LOSA100T6 PO; -MELA3TAB PO; +MELA3TAB56 PO; +MELO15TA6 PO; -MELOXICAM 7.5 MG TABLET PO PRN; -METO50TA2 PO; +METO50TA6 PO; -MORPHINE SULFATE 2 MG/ML DISP.SYRIN. IV PRN; -ONDANSETRON PF 4 MG/2 ML VIAL. IV PRN; +POTA10TA12 PO; -POTA10TA5 PO; -PROCHLORPERAZINE 10 MG/2 ML VIAL. IV PRN; +SIMV20TA18 PO; -SIMV20TA3 PO; -TOBRAMYCIN POWDER 1.2 GM VIAL. ONE; -TRANEXAMIC ACID 1,000 MG in IV NS 50ML -- 1ST BAG INJ ONE; -TRANEXAMIC ACID 1,000 MG in IV NS 50ML -- 2ND BAG INJ ONE; -VANCOMYCIN 1 GM VIAL. ONE; +WARF-31 PO; -WARF5TAB7 PO; -fentaNYL PF VIAL 100 MCG/2 ML VIAL IV PRN
--- NOTE | 2019-03-25 09:30 | KCIC ---
EXAM: Abdomen sonogram. HISTORY: Right upper quadrant pain. TECHNIQUE: Sonographic imaging of the abdomen was performed. COMPARISON: None. FINDINGS: The liver is normal in size. No focal hepatic lesion is seen. The common bile duct is normal in caliber. The gallbladder is surgically absent. The right kidney, pancreas, and inferior vena cava are unremarkable. There is aortic atherosclerosis. There is no aneurysm. IMPRESSION: 1. Cholecystectomy. 2. Aortic atherosclerosis. Electronically signed by: Luz Marina Hill MD (03/25/2019 9:27 AM) [place] [id number]
== END | disposition home or self-care (01) ==
LOC: KCIC US 08:46
PROVIDERS: ATTEND Family Medicine
DX: R10.11 Right upper quadrant pain (principal); I70.0 Atherosclerosis of aorta; Z90.49 Acquired absence of other specified parts of digestive tract
CPT/HCPCS: 76705

== ENCOUNTER → 2019-05-20 | Day surgery (SDC) | payer MEDICARE ==
[~2019-05-20] MED LIST changes: +AMLO2.5T5 PO; +CARV12.5 PO; +IV RINGERS,LACTATED 1000ML 1,000 ML IV SCH; +PROPOFOL 20 ML IV ONE
--- NOTE | 2019-05-20 13:15 | PDOC4 ---
PROCEDURE Procedure EGD/biopsies Indication: RUQ pain post-bogdan, antacid-responsive Meds: per anesthesia Findings: E--Less than grade A reflux at 40cm. G--Striped erythema, antrum. Tiny, nearly-healed ulcer superior aspect pre- pyloric. Antral biopsies done. D--Normal to second portion. Gibson. well. IMP: Reflux esophagitis. Small ulcer. REC: Omeprazole 40mg daily. Await path. Resume other meds, diet. F/u with me in 2 weeks. ANDREZ CARDENAS MD May 20, 2019 13:15
[2019-05-20 13:47] VITALS: BP 156/72
--- NOTE | 2019-05-21 14:07 | PATHOLOGY ---
[facility] Accession Number: [id number] . 01 Material submitted: . stomach - ANTRUM BIOPSY . 01 Clinical history: . Abdominal pain . 02 Diagnosis: Gastric biopsies, antrum: - Mild reactive gastropathy. . (JPM:vicenta; 05/21/2019) [facility] [place] 05/21/2019 0850 Local . 02 Comment: Sections of the gastric antral biopsy show congestion, mild foveolar hyperplasia, and slight chronic inflammation. A properly controlled immunoperoxidase stain for Helicobacter is negative for Helicobacter organisms. The findings are consistent with a mild reactive gastropathy. (JPM:vicenta; 05/21/2019) . . Special stain performed: Immunoperoxidase stain for Helicobacter on A1 . 02 Electronically signed: . Jorge Adkins MD, Pathologist NPI- [id number] . 01 Gross description: . The specimen is received in formalin, labeled "Monique Guerrero, antrum biopsy". Received are two segments of pale griffith soft tissue ranging in size from 0.3 to 0.7 cm in maximum dimensions. The specimen is submitted entirely in cassette A1. (CAA; 05/20/2019) QA/QA 05/21/2019 0847 Local . 02 Pathologist provided ICD-10: K31.9 . 02 CPT . 505012, C33760 Specimen Comment: A courtesy copy of this report has been sent to [phone], [phone] Specimen Comment: [phone] Specimen Comment: Report sent to and Performed at: 01 [facility] [address], [place], [place] [id number] MD Emanuel River MD Phone: [phone] Performed at: 02 [facility] [place] [address] [place], [place] [id number] MD Jorge Adkins MD Phone: [phone]
== END | disposition home or self-care (01) ==
LOC: SURG 11:58
PROVIDERS: ATTEND Internal Medicine Gastroenterology
DX: R10.11 Right upper quadrant pain (principal); K20.9 Esophagitis, unspecified; K25.9 Gastric ulcer, unspecified as acute or chronic, without hemorrhage or perforation; K31.89 Other diseases of stomach and duodenum; M19.90 Unspecified osteoarthritis, unspecified site; I48.91 Unspecified atrial fibrillation; I25.10 Atherosclerotic heart disease of native coronary artery without angina pectoris; I10 Essential (primary) hypertension; G47.33 Obstructive sleep apnea (adult) (pediatric); E03.9 Hypothyroidism, unspecified; D64.9 Anemia, unspecified; F41.9 Anxiety disorder, unspecified; Z79.01 Long term (current) use of anticoagulants; Z79.899 Other long term (current) drug therapy; Z90.49 Acquired absence of other specified parts of digestive tract; Z98.890 Other specified postprocedural states; Z88.0 Allergy status to penicillin; Z88.8 Allergy status to other drugs, medicaments and biological substances; Z88.6 Allergy status to analgesic agent; Z91.040 Latex allergy status; Z90.710 Acquired absence of both cervix and uterus; Z98.51 Tubal ligation status; Z95.0 Presence of cardiac pacemaker
CPT/HCPCS: 43239; J2704

== ENCOUNTER 2020-06-26 10:28 | Emergency (ER) | payer MEDICARE ==
[~2020-06-26] VITALS: Ht 170.2 cm; Wt 81.2 kg
[~2020-06-26 10:28] MED LIST changes: -CALC600T4 PO; +CALC600T6 PO; -CLIN300C8 PO; +CLIN300C9 PO; -IV RINGERS,LACTATED 1000ML 1,000 ML IV SCH; -LEVO75TA PO; +LEVO75TA90 PO; +LISI10TA16 PO; -LISI10TA2 PO; +MELA3TAB4 PO; -MELA3TAB56 PO; -PROPOFOL 20 ML IV ONE; -WARF-78 PO; +WARF5TAB2 PO
[2020-06-26] MEDS ORDERED: IV NORMAL SALINE 1000ML BAG 1,000 ML IV ONE (11:00)
--- NOTE | 2020-06-26 11:08 | EKG ---
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
--- NOTE | 2020-06-26 11:16 | PHYS DOC ---
Past Medical History Past Medical History: A-Fib, Arthritis, High Cholesterol, Hypertension, H ypothyroid, Other Additional Past Medical Histor: BELLS PALSY, BREAST SURG X 4- 2 ON EACH SIDE, PACEMAKER Past Surgical History: Cholecystectomy, Hysterectomy, Knee Replacement, Other Additional Past Surgical Histo: SURG FOR BELLS PALSY, CARD STENTS, BREAST SURG X4, BACK SURG, Smoking Status: Never Smoker Alcohol Use: None Drug Use: None General Adult EDM: Chief Complaint: HYPOTENSION HPI: HPI: Patient is a 85 year old female who presents with weakness due to relative hypotension. She has been having symptoms of weakness and feeling like she is going to lose consciousness for the past 3 days. She has had no syncopal episodes. Patient has a history of atrial fibrillation and pacemaker, and reports having blood pressures recently around 117/70 with her normal being closer to 140/80. Says that her symptoms have been constant over the past 3 days, and feels better with laying down. Nothing makes the symptoms worse. Patient's drove her to the ED today after calling her gas combustion engineer. She says that she has felt like this before when her blood pressures are in this range. She is not in pain and has no other symptoms or complaints at this time. Review of Systems: Review of Systems: Constitutional: Denies fever or chills Eyes: Denies redness or eye pain HENT: Denies nasal congestion or sore throat Respiratory: Denies cough or shortness of breath Cardiovascular: Denies chest pain or palpitations GI: Denies abdominal pain, or vomiting. Reports nausea : Denies dysuria or hematuria Musculoskeletal: Denies back pain or joint pain Integument: Denies rash or skin lesions Neurologic: Denies headache, focal weakness or sensory changes Complete systems were reviewed and found to be within normal limits, except as documented in this note. Heart Score: C/O Chest Pain: N/A Current Medications: Current Medications Medications (Trade) Dose Ordered Sig/Bhavya Start Time Stop Time Status Last Admin Dose Admin Sodium Chloride 1,000 ml @ 1,000 mls/hr 1X ONCE 06/26/20 11:00 06/26/20 11:59 Allergies: Allergies: Allergies Coded Allergies Type Severity Reaction Last Updated Verified Docusate Potassium Allergy Intermediate 05/20/19 Yes Flurazepam HCl Allergy Intermediate 05/20/19 Yes Penicillins Allergy Intermediate 05/20/19 Yes Pentazocine Lactate Allergy Intermediate 05/20/19 Yes casanthranol Allergy Intermediate 05/20/19 Yes codeine Allergy Intermediate 05/20/19 Yes desipramine HCl Allergy Intermediate 05/20/19 Yes docusate sodium Allergy Intermediate 05/20/19 Yes gadopentetate dimeglumine Allergy Intermediate 05/20/19 Yes imipramine Allergy Intermediate 05/20/19 Yes phenolphthalein Allergy Intermediate 05/20/19 Yes propoxyphene HCl Allergy Intermediate 05/20/19 Yes zolpidem tartrate Allergy Intermediate 05/20/19 Yes latex Adverse Reaction Intermediate 05/20/19 Yes Physical Exam: PE: Constitutional: Well developed, well nourished, no acute distress, non-toxic appearance HENT: Normocephalic, atraumatic Eyes: PERRL, EOMI, conjunctiva normal, no discharge Neck: Normal range of motion, no tenderness, supple Lungs & Thorax: No respiratory distress, equal chest rise and fall Abdomen: Soft, no tenderness Skin: Warm, dry, no erythema, no rash Back: No tenderness, no CVA tenderness Extremities: No tenderness, ROM intact, no edema Neurologic: Alert and oriented X 3, normal motor function, normal sensory function, no focal deficits noted Psychologic: Affect normal, judgment normal Current Patient Data: Vital Signs: Vital Signs Date Time Temp Pulse Resp B/P (MAP) Pulse Ox O2 Delivery O2 Flow Rate FiO2 06/26/20 10:41 98.3 83 18 169/77 (107) 97 Room Air 98.3 EKG: EKG: EKG shows paced rhythm with atrial fibrillation. No P waves . No STEMI. QT/QTc: 448/457 ms. RR 971 ms. Reviewed at 1058 Radiology/Procedures: Radiology/Procedures: PROCEDURE: CHEST AP ONLY XR CHEST 1V CLINICAL INDICATIONS: Reason: weakness, hypotension COMPARISON: October 01, 2017. Findings: No acute lung infiltrate or pleural effusion or pulmonary edema or lung mass or pneumothorax is seen. Cardiomegaly is evident and is unchanged. A unipolar right ventricular pacemaker is again evident. The pulmonary vasculature, mediastinum and both jessy are unremarkable. IMPRESSION: No acute radiographic abnormality is seen. Stable cardiomegaly. Electronically signed by: Ben Brown MD (06/26/2020 12:35 PM) [id number] Course & Med Decision Making: Course & Med Decision Making Pertinent Labs and Imaging studies reviewed. (See chart for details) Labs, urinalysis, EKG, chest x-ray were performed on patient. Urinalysis showed no signs of UTI. Labs show that patient was hemodynamically stable. EKGs showed no signs of STEMI or acute heart process. Change of blood pressure may partially be due to patient's recent change in amlodipine dosage. She was advised to follow-up with her PCP/gas combustion engineer for further management of hypertension. Patient stable for discharge with outpatient follow-up with PCP. Discussed findings and plan with patient, who acknowledges understanding and agreement. Huber Disclaimer: Dragmartha Disclaimer: This electronic medical record was generated, in whole or in part, using a voice recognition dictation system. Departure Departure Impression: Primary Impression: Weakness Disposition: 01 DC HOME SELF CARE/HOMELESS Condition: STABLE Referrals: VIBHA SILVA MD (PCP) Patient Instructions: Weakness, [id number] Additional Instructions: Adjust back to your original dose of amlodipine. Please contact your family doctor and/or gas combustion engineer to let them know about your symptoms and that you have gone back to your original dosing. Increase fluid hydration. ANDREZ JULIEN DO Jun 26, 2020 11:16
[2020-06-26 11:17] LABS: BASO % 1 % (0-3); EOS # 0.1 x10^3/uL (0.0-0.7); EOS % 2 % (0-3); HEMATOCRIT 39.1 % (36.0-47.0); HEMOGLOBIN 12.7 g/dL (12.0-15.5); LYMPH # 1.2 x10^3/uL (1.0-4.8); LYMPH % 25 % (24-48); MEAN CORPUSCULAR HEMOGLOBIN 30 pg (25-35); MEAN CORPUSCULAR HGB CONC 33 g/dL (31-37); MEAN CORPUSCULAR VOLUME 94 fL (79-100); MONO # 0.4 x10^3/uL (0.0-1.1); MONO % 8 % (0-9); NEUT # 3.1 x10^3/uL (1.8-7.7); NEUT % 64 % (31-73); PLATELET COUNT 141 x10^3/uL (140-400); RED BLOOD COUNT 4.18 x10^6/uL (3.50-5.40); WHITE BLOOD COUNT 4.8 x10^3/uL (4.0-11.0)
[2020-06-26 11:19] LABS: BILIRUBIN,URINE NEGATIVE (NEG); CLARITY,URINE CLEAR; COLOR,URINE YELLOW; NITRITE,URINE NEGATIVE (NEG); PROTEIN,URINE NEGATIVE (NEG-TRACE); UROBILINOGEN,URINE 0.2 mg/dL (0.2 mg/dL)
[2020-06-26 11:27] LABS: PROTHROMBIN TIME PATIENT 23.9 SEC (11.7-14.0)
[2020-06-26 11:33] LABS: CALCIUM 8.4 mg/dL (8.5-10.1); CREATININE 0.9 mg/dL (0.6-1.0); GFR 59.2; POTASSIUM 4.1 mmol/L (3.5-5.1)
[2020-06-26 11:33] LABS: BACTERIA,URINE 0 /HPF (0-FEW); RBC,URINE 0 /HPF (0-2); WBC,URINE 0 /HPF (0-4)
[2020-06-26 11:39] LABS: ALBUMIN 3.3 g/dL (3.4-5.0); ALBUMIN/GLOBULIN RATIO 1.1 (1.0-1.7); MAGNESIUM 2.3 mg/dL (1.8-2.4); TOTAL BILIRUBIN 0.9 mg/dL (0.2-1.0); TOTAL PROTEIN 6.2 g/dL (6.4-8.2)
--- NOTE | 2020-06-26 12:37 | RAD ---
XR CHEST 1V CLINICAL INDICATIONS: Reason: weakness, hypotension COMPARISON: October 01, 2017. Findings: No acute lung infiltrate or pleural effusion or pulmonary edema or lung mass or pneumothora x is seen. Cardiomegaly is evident and is unchanged. A unipolar right ventricular pacemaker is again evident. The pulmonary vasculature, mediastinum and both jessy are unremarkable. IMPRESSION: No acute radiographic abnormality is seen. Stable cardiomegaly. Electronically signed by: Ben Brown MD (06/26/2020 12:35 PM) [id number]
[2020-06-26 13:27] VITALS: BP 178/77
== END 2020-06-26 13:47 | disposition home or self-care (01) ==
LOC: ER 10:28
DX: R53.1 Weakness (principal); I48.91 Unspecified atrial fibrillation; E78.00 Pure hypercholesterolemia, unspecified; I10 Essential (primary) hypertension; E03.9 Hypothyroidism, unspecified; Z95.0 Presence of cardiac pacemaker; Z95.5 Presence of coronary angioplasty implant and graft; Z88.0 Allergy status to penicillin; Z88.5 Allergy status to narcotic agent; Z91.040 Latex allergy status; Z88.8 Allergy status to other drugs, medicaments and biological substances
CPT/HCPCS: 36415; 71045; 80053; 81001; 83605; 83690; 83735; 83880; 84484; 85025; 85610; 85730; 93005; 96360; 99285; J7030

== ENCOUNTER 2021-01-01 10:46 | Emergency (ER) | payer MEDICARE ==
[~2021-01-01] VITALS: Ht 170.2 cm; Wt 79.6 kg
[~2021-01-01 10:46] MED LIST changes: -CALC600T6 PO; +CALC600T60 PO; +CLIN-94 PO; -CLIN300C9 PO
[2021-01-01] MEDS ORDERED: LIDOCAINE/EPI/TETRACAINE TOPICAL GEL 3 ML. TP ONE (11:15)
[2021-01-01] MEDS ORDERED: NEOMY/BACITR/POLYMYXIN OINT PACKET. TP ONE ×2 (11:15→11:26)
[2021-01-01] MEDS ORDERED: DIPH,PERTUSS(ACELL),TET VAC/PF 0.5 ML SYRINGE. VAX IM ONE ×2 (11:15→11:26)
--- NOTE | 2021-01-01 11:20 | ED.ADGEN ---
Past Medical History Past Medical History: A-Fib, Arthritis, High Cholesterol, Hypertension, H ypothyroid, Other Additional Past Medical Histor: BELLS PALSY, BREAST SURG X 4- 2 ON EACH SIDE, PACEMAKER Past Surgical History: Cholecystectomy, Hysterectomy, Knee Replacement, Other Additional Past Surgical Histo: SURG FOR BELLS PALSY, CARD STENTS, BREAST SURG X4, BACK SURG, Smoking Status: Never Smoker Alcohol Use: None Drug Use: None General Adult EDM: Chief Complaint: MECHANICAL FALL HPI: HPI: Patient is a 85 year old female coming in after a fall. Patient tripped over some concrete and fell forwards onto the concrete. States she caught herself with her hands and struck her head. Denies any loss of consciousness. Patient is on warfarin for her atrial fibrillation. Is unsure when her last tetanus vaccine was. Patient has abrasions to bilateral hands. Denies any vision changes, nausea or vomiting, neck pain, or altered consciousness Review of Systems: Review of Systems: All other systems within normal limits except for as noted in the HPI Current Medications: Current Medications Medications (Trade) Dose Ordered Sig/Bhavya Start Time Stop Time Status Last Admin Dose Admin Diphtheria/ Tetanus/Acell Pertussis (ADACEL TDap SYRINGE) 0.5 ml STK-MED ONCE 01/01/21 11:26 01/01/21 11:27 DC Lidocaine/ Epinephrine (LIDOCAINE 2%-EPI 1:100,000 multi-dose) 20 ml 1X ONCE 01/01/21 13:00 01/01/21 13:01 DC 01/01/21 13:00 20 ML Neomycin/ Polymyxin/ Bacitracin (Triple Antibiotic Ointment) 1 pkt STK-MED ONCE 01/01/21 11:26 01/01/21 11:26 DC Tetracaine/ Epinephrine/ Lidocaine (Let (Bjcj-Ayikinm-Zwrvl) Gel) 3 ml 1X ONCE 01/01/21 11:15 01/01/21 11:26 DC 01/01/21 11:22 3 ML Allergies: Allergies: Allergies Coded Allergies Type Severity Reaction Last Updated Verified Docusate Potassium Allergy Intermediate 05/20/19 Yes Flurazepam HCl Allergy Intermediate 05/20/19 Yes Penicillins Allergy Intermediate 05/20/19 Yes Pentazocine Lactate Allergy Intermediate 05/20/19 Yes casanthranol Allergy Intermediate 05/20/19 Yes codeine Allergy Intermediate 05/20/19 Yes desipramine HCl Allergy Intermediate 05/20/19 Yes docusate sodium Allergy Intermediate 05/20/19 Yes gadopentetate dimeglumine Allergy Intermediate 05/20/19 Yes imipramine Allergy Intermediate 05/20/19 Yes phenolphthalein Allergy Intermediate 05/20/19 Yes propoxyphene HCl Allergy Intermediate 05/20/19 Yes zolpidem tartrate Allergy Intermediate 05/20/19 Yes lincomycin Allergy Unknown 01/01/21 Yes latex Adverse Reaction Intermediate 05/20/19 Yes Physical Exam: PE: Constitutional: Well developed, well nourished, no acute distress, non-toxic appearance. [] HENT: Normocephalic, right frontal hematoma, bilateral external ears normal, nose normal. [] Eyes: PERRLA, conjunctiva normal, no discharge. [] Neck: No rigidity, supple, no stridor. [] Cardiovascular: Regular rate and rhythm, brisk cap refill [] Lungs & Thorax: Non labored symmetric respirations, no tachypnea or respiratory distress [] Abdomen: Soft, nondistended. Skin: Warm, dry, no erythema, no rash. Superficial skin tears to bilateral hands, 1.5 cm laceration in right eyebrow [] Back: Unremarkable Extremities: No deformities, range of motion grossly intact, no lower extremity edema [] Neurologic: Alert and oriented X 3, no focal deficits noted. [] Psychologic: Affect normal, judgement normal, mood normal. [] Current Patient Data: Labs: Laboratory Tests Test 01/01/21 11:57 Urine Collection Type Unknown Urine Color Yellow Urine Clarity Clear Urine pH 7.5 (<5.0-8.0) Urine Specific [place] <=1.005 (1.000-1.030) Urine Protein Negative mg/dL (NEG-TRACE) Urine Glucose (UA) Negative mg/dL (NEG) Urine Ketones (Stick) Negative mg/dL (NEG) Urine Blood Negative (NEG) Urine Nitrite Negative (NEG) Urine Bilirubin Negative (NEG) Urine Urobilinogen Dipstick 0.2 mg/dL (0.2 mg/dL) Urine Leukocyte Esterase Negative (NEG) Urine RBC Rare /HPF (0-2) Urine WBC Rare /HPF (0-4) Urine Squamous Epithelial Cells Few /LPF Urine Bacteria 0 /HPF (0-FEW) Vital Signs: Vital Signs Date Time Temp Pulse Resp B/P (MAP) Pulse Ox O2 Delivery O2 Flow Rate FiO2 01/01/21 13:55 60 20 169/77 (107) 97 Room Air 01/01/21 11:05 98.1 98.1 EKG: EKG: [] Heart Score: C/O Chest Pain: No Risk Factors: Risk Factors: DM, Current or recent (<one month) smoker, HTN, HLP, family history of CAD, obesity. Risk Scores: Score 0 - 3: 2.5% MACE over next 6 weeks - Discharge Home Score 4 - 6: 20.3% MACE over next 6 weeks - Admit for Clinical Observation Score 7 - 10: 72.7% MACE over next 6 weeks - Early Invasive Strategies Radiology/Procedures: Radiology/Procedures: [facility] [address] [place] [address] IMAGING REPORT Signed PATIENT: ERICA LORACCOUNT: [id number] : 1935 LOCATION: ER AGE: 85 SEX: F EXAM STATUS: REG ER ORD. PHYSICIAN: SUZY ROBLES MD REASON: fall, pain PROCEDURE: WRIST 3V LEFT EXAM: XR LT WRIST 3VIEWS 01/01/2021 11:20 AM CLINICAL INDICATION: Fall, pain COMPARISON: None TECHNIQUE: PA, oblique, and lateral views of the left wrist FINDINGS: The bones are diffusely demineralized. There is no acute fracture. Alignment is normal. There is severe joint space narrowing with subchondral sclerosis and large osteophytes at the first CMC joint. More moderate degenerative joint disease at the triscaphe the joint. There is widening of the scapholunate interval with subchondral cysts in the proximal scaphoid suggesting old scapholunate ligament tear. Mild radiocarpal joint space narrowing and osteophyte formation. Scattered chondrocalcinosis. IMPRESSION: 1. No acute fracture. 2. 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 3. Severe degenerative joint disease joint at the first CMC joint, and moderate at the triscaphe the joint. Electronically signed by: Suzy Lester MD (01/01/2021 11:55 AM) [id number] DICTATED and SIGNED BY: SUZY LESTER MD DATE: 01/01/21 [id number] [][facility] [address] [place] [address] IMAGING REPORT Signed PATIENT: ERICA LORAOUNT: [id number] : 1935 LOCATION: ER AGE: 85 SEX: F EXAM STATUS: REG ER ORD. PHYSICIAN: SUZY ROBLES MD REASON: fall, on warfarin PROCEDURE: CT HEAD AND CERVICAL SPINE WO CT HEAD AND C-SPINE WO Date: 01/01/2021 11:25 AM Clinical Indication: Pain, fall, on warfarin / Spl. Instructions: / History: Comparison: CT head 12/10/2015. Technique: 5 mm axial tomographic images were obtained of the head without contrast. These were viewed on brain and bone windows. Noncontrast CT of the cervical spine was performed. Sagittal and coronal reformats were performed and evaluated. One or more of the following dose reduction techniques were utilized: Automated exposure control (AEC), Adjustment of mA and/or kV according to patient size, Use of iterative reconstruction technique such as ASiR, CT scan done according to ALARA and image gently/image wisely HEAD FINDINGS: Mild generalized cerebral and cerebellar volume loss. Mild nonspecific periventricular hypoattenuation, most commonly seen with chronic small vessel ischemic disease. No intra- or extra-axial mass or fluid collection. No acute hemorrhage. The ventricles are normal in size, shape, and morphology. The root-white matter junction is normal. The basilar cisterns are patent. The visualized paranasal sinuses are normal. The visualized portions of the orbits and globes are normal. Right canal wall up mastoidectomy. No aggressive osseous lesion or fracture. CERVICAL SPINE FINDINGS: The cervical spine is normally aligned. No acute fracture. No aggressive lytic or blastic osseous lesions. Moderate multilevel degenerative disc space height loss. Multilevel mild spinal canal stenosis secondary to disc protrusions and marginal osteophytes. Multilevel moderate neuroforaminal narrowing secondary to uncovertebral arthrosis. Multilevel moderate facet arthrosis. The thyroid gland is normal. No cervical lymphadenopathy. Bilateral carotid atherosclerosis. The visualized aerodigestive tract is normal. The visualized portions of the lungs are clear. IMPRESSION: 1. No acute intracranial process. 2. No acute cervical spine fracture. Electronically signed by: Feng Sandoval MD (01/01/2021 12:01 PM) [id number] DICTATED and SIGNED BY: FENG SANDOVAL MD DATE: 01/01/21 [id number] 0 Impression: Patient was prepped and draped in normal fashion, wound irrigated and cleansed with normal saline. The 1.5 cm wound was anesthetized with lidocaine 2% with epinephrine and let. Depth of wound was examined and no foreign bodies found. Wound was approximated with 5-0 Prolene suture in a simple interrupted pattern. 3 sutures placed without complication. Wound was not dressed Course & Med Decision Making: Course & Med Decision Making Pertinent Labs and Imaging studies reviewed. (See chart for details) [] Dragon Disclaimer: Dragon Disclaimer: This electronic medical record was generated, in whole or in part, using a voice recognition dictation system. Departure Departure Impression: Primary Impression: Fall Additional Impression: Laceration of eyebrow Disposition: HOME / SELF CARE / HOMELESS Condition: STABLE Referrals: VIBHA SILVA MD (PCP) Patient Instructions: Facial Laceration Additional Instructions: Follow-up with your primary care provider or return to emergency department for suture removal in 5 to 7 days. Problem Qualifiers SUZY ROBLES MD Jan 01, 2021 11:20
--- NOTE | 2021-01-01 11:58 | RAD ---
EXAM: XR LT WRIST 3VIEWS 01/01/2021 11:20 AM CLINICAL INDICATION: Fall, pain COMPARISON: None TECHNIQUE: PA, oblique, and lateral views of the left wrist FINDINGS: The bones are diffusely demineralized. There is no acute fracture. Alignment is normal. Th ere is severe joint space narrowing with subchondral sclerosis and large osteophytes at the first CMC joint. More moderate degenerative joint disease at the triscaphe the joint. There is widening of the scapholunate interval with subchondral cysts in the proximal scaphoid suggesting old scapholunate li gament tear. Mild radiocarpal joint space narrowing and osteophyte formation. Scattered chondrocalcin osis. IMPRESSION: 1. No acute fracture. 2. 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 3. Severe degenerative joint disease joint at the first CMC joint, and moderate at the triscaphe the joint. Electronically signed by: Suzy Lester MD (01/01/2021 11:55 AM) [id number]
--- NOTE | 2021-01-01 12:04 | RAD ---
CT HEAD AND C-SPINE WO Date: 01/01/2021 11:25 AM Clinical Indication: Pain, fall, on warfarin / Spl. Instructions: / History: Comparison: CT head 12/10/2015. Technique: 5 mm axial tomographic images were obtained of the head without contrast. These were view ed on brain and bone windows. Noncontrast CT of the cervical spine was performed. Sagittal and christian l reformats were performed and evaluated. One or more of the following dose reduction techniques were utilized: Automated exposure control (AEC), Adjustment of mA and/or kV according to patient size, Us e of iterative reconstruction technique such as ASiR, CT scan done according to ALARA and image gentl y/image wisely HEAD FINDINGS: Mild generalized cerebral and cerebellar volume loss. Mild nonspecific periventricular hypoattenuatio n, most commonly seen with chronic small vessel ischemic disease. No intra- or extra-axial mass or fluid collection. No acute hemorrhage. The ventricles are normal in size, shape, and morphology. The root-white matter junction is normal. The basilar cisterns are paten t. The visualized paranasal sinuses are normal. The visualized portions of the orbits and globes are no rmal. Right canal wall up mastoidectomy. No aggressive osseous lesion or fracture. CERVICAL SPINE FINDINGS: The cervical spine is normally aligned. No acute fracture. No aggressive lytic or blastic osseous les ions. Moderate multilevel degenerative disc space height loss. Multilevel mild spinal canal stenosis second delmy to disc protrusions and marginal osteophytes. Multilevel moderate neuroforaminal narrowing second delmy to uncovertebral arthrosis. Multilevel moderate facet arthrosis. The thyroid gland is normal. No cervical lymphadenopathy. Bilateral carotid atherosclerosis. The visu alized aerodigestive tract is normal. The visualized portions of the lungs are clear. IMPRESSION: 1. No acute intracranial process. 2. No acute cervical spine fracture. Electronically signed by: Raza Sandoval MD (01/01/2021 12:01 PM) [id number]
[2021-01-01] MEDS ORDERED: LIDOCAINE 2%/EPI 1:100,000 20 ML VIAL. INJ ONE (13:00)
[2021-01-01 13:26] LABS: BILIRUBIN,URINE NEGATIVE (NEG); CLARITY,URINE CLEAR; COLOR,URINE YELLOW; NITRITE,URINE NEGATIVE (NEG); PH,URINE 7.5 (<5.0-8.0); PROTEIN,URINE NEGATIVE (NEG-TRACE); UROBILINOGEN,URINE 0.2 mg/dL (0.2 mg/dL)
[2021-01-01 13:55] VITALS: BP 169/77
[2021-01-01 13:57] LABS: RBC,URINE RARE /HPF (0-2); WBC,URINE RARE /HPF (0-4)
[2021-01-01 13:58] LABS: BACTERIA,URINE 0 /HPF (0-FEW)
== END 2021-01-01 14:18 | disposition home or self-care (01) ==
LOC: ER 10:46
DX: S01.111A Laceration without foreign body of right eyelid and periocular area, initial encounter (principal); S61.412A Laceration without foreign body of left hand, initial encounter; S61.411A Laceration without foreign body of right hand, initial encounter; I48.91 Unspecified atrial fibrillation; M19.90 Unspecified osteoarthritis, unspecified site; E78.00 Pure hypercholesterolemia, unspecified; I10 Essential (primary) hypertension; E03.9 Hypothyroidism, unspecified; Z95.0 Presence of cardiac pacemaker; Z88.8 Allergy status to other drugs, medicaments and biological substances; Z88.1 Allergy status to other antibiotic agents; Z88.5 Allergy status to narcotic agent; Z91.040 Latex allergy status; W18.09XA Striking against other object with subsequent fall, initial encounter; Y93.89 Activity, other specified; Y92.89 Other specified places as the place of occurrence of the external cause; Y99.8 Other external cause status
CPT/HCPCS: 12011; 70450; 72125; 73120; 81001; 90471; 90715; 99285; J3490

== ENCOUNTER 2021-03-26 14:21 | Emergency (ER) | payer MEDICARE ==
[~2021-03-26] VITALS: Ht 170.2 cm; Wt 83.7 kg
--- NOTE | 2021-03-26 14:34 | PHYS DOC ---
Past Medical History Past Medical History: A-Fib, Arthritis, High Cholesterol, Hypertension, H ypothyroid, Other Additional Past Medical Histor: BELLS PALSY, BREAST SURG X 4- 2 ON EACH SIDE, PACEMAKER Past Surgical History: Cholecystectomy, Hysterectomy, Knee Replacement, Other Additional Past Surgical Histo: SURG FOR BELLS PALSY, CARD STENTS, BREAST SURG X4, BACK SURG, Smoking Status: Never Smoker Alcohol Use: None Drug Use: None General Adult EDM: Chief Complaint: LOWER EXTREMITY SWELLING HPI: HPI: Patient is a 86-year-old female presenting via POV for left lower extremity pain. This is an acute on chronic issue. States she typically has issues related to osteoporosis and old-age for which she is seen in outpatient therapy by primary care physician and physical therapist. Admits she was at her physical therapist approximately 3 days prior and had deep tissue massage performed as there was concern for potential muscle/tendon injury of left anterior thigh. Nonetheless, after the session, patient reports developing increased swelling in her left leg with subsequent ecchymosis and pain that is present on both anterior, medial and posterior portions of the thigh. Patient today reports pain was unbearable and so she went to local urgent care and was subsequently sent to our ER to rule out DVT. Patient otherwise has intact motor or sensory neuro function but does cite increased pain with physical movement of left lower extremity. She is currently anticoagulated with warfarin with goal 2.0-3.0 with last INR this week reading 2.3 for atrial fibrillation. Otherwise has been at baseline health Review of Systems: Review of Systems: Fourteen body systems of review of systems have been reviewed. See HPI for pertinent positives and negative responses, other clark all other systems are negative, non-pertinent or non-contributory Heart Score: C/O Chest Pain: No Risk Factors: Risk Factors: DM, Current or recent (<one month) smoker, HTN, HLP, family history of CAD, obesity. Risk Scores: Score 0 - 3: 2.5% MACE over next 6 weeks - Discharge Home Score 4 - 6: 20.3% MACE over next 6 weeks - Admit for Clinical Observation Score 7 - 10: 72.7% MACE over next 6 weeks - Early Invasive Strategies Allergies: Allergies: Allergies Coded Allergies Type Severity Reaction Last Updated Verified Docusate Potassium Allergy Intermediate 05/20/19 Yes Flurazepam HCl Allergy Intermediate 05/20/19 Yes Penicillins Allergy Intermediate 05/20/19 Yes Pentazocine Lactate Allergy Intermediate 05/20/19 Yes casanthranol Allergy Intermediate 05/20/19 Yes codeine Allergy Intermediate 05/20/19 Yes desipramine HCl Allergy Intermediate 05/20/19 Yes docusate sodium Allergy Intermediate 05/20/19 Yes gadopentetate dimeglumine Allergy Intermediate 05/20/19 Yes imipramine Allergy Intermediate 05/20/19 Yes phenolphthalein Allergy Intermediate 05/20/19 Yes propoxyphene HCl Allergy Intermediate 05/20/19 Yes zolpidem tartrate Allergy Intermediate 05/20/19 Yes lincomycin Allergy Unknown 01/01/21 Yes latex Adverse Reaction Intermediate 05/20/19 Yes Physical Exam: PE: Constitutional: Well developed, well nourished, no acute distress, non-toxic appearance. HENT: Normocephalic, atraumatic, bilateral external ears normal, oropharynx moist, no oral exudates, nose normal. Eyes: PERRLA, EOMI, conjunctiva normal, no discharge. Neck: Normal range of motion, no tenderness, supple, no stridor. Cardiovascular: Heart rate regular, sinus rhythm, no murmurs rubs or gallops Lungs & Thorax: Bilateral breath sounds clear to auscultation Abdomen: Bowel sounds normal, soft, no tenderness, no masses, no pulsatile masses. Nonsurgical abdomen, no peritoneal signs Skin: Warm, dry, no erythema, no rash. Ecchymosis present to left anterior and medial aspect of upper thigh Back: No tenderness, no CVA tenderness. Extremities: Pelvis intact. Tenderness to palpation of left anterior, medial and posterior aspects of left thigh without any appreciable warmth or crepitus. No cyanosis, no clubbing, ROM intact, there is bilateral lower extremity trace edema Neurologic: Alert and oriented X 3, grossly normal motor & sensory function, no focal deficits noted. Psychologic: Anxious affect and mood Current Patient Data: Vital Signs: Vital Signs Date Time Temp Pulse Resp B/P (MAP) Pulse Ox O2 Delivery O2 Flow Rate FiO2 03/26/21 14:27 97.4 79 20 138/47 (77) 98 Room Air 97.4 EKG: EKG: [] Radiology/Procedures: Radiology/Procedures: INDICATION: Reason: R/O DVT, POSTERIOR PAIN AND INC CIRCUM / Spl. Instructions: / History: COMPARISON: September 2016 TECHNIQUE: Grayscale, color and doppler ultrasound images were obtained of the left lower extremity venous vasculature. LEFT: No thrombus identified in the common femoral vein, femoral vein, popliteal vein or visualized calf veins. Edema of soft tissues IMPRESSION: * No thrombus identified in deep venous system of the left lower extremity. * Large amount of edema within the soft tissues. Regions appear confluent. Electronically signed by: Srini Jamison MD (03/26/2021 4:40 PM) DESKTOP- [id number] Course & Med Decision Making: Course & Med Decision Making ABCs unremarkable HPI physical exam and comprehensive ER work-up that included venous ultrasound of left lower extremity nonconcerning for DVT. Patient concerned about this as her first from 1 I discussed given clinical presentation this is unlikely, presenting symptoms likely due to aggressive deep tissue massage performed by physical therapist and elderly/fragile patient on warfarin causing ecchymosis, pain and muscle soreness I did disclose other potentially emergent and/or limb threatening diagnoses such as compartment syndrome but patient has adequate pulses and reflexes to bilateral lower extremities I discussed need for continued supportive care that should include Tylenol for pain with close PCP follow-up. Patient currently being treated for fluid overloaded state in outpatient setting by cardiology team, she should keep close contact with them as she is using increased dose of Lasix per baseline Strict return precautions were discussed at length with good understanding by patient and at bedside, all questions and concerns addressed prior to ER departure Huber Disclaimer: Huber Disclaimer: This electronic medical record was generated, in whole or in part, using a voice recognition dictation system. Departure Departure Impression: Primary Impression: Left leg pain Disposition: HOME / SELF CARE / HOMELESS Condition: STABLE Referrals: VIBHA SILVA MD (PCP) Additional Instructions: As discussed prior to ER departure, your vitals, physical exam and comprehensive ER work-up that included ultrasound of your left lower extremity were nonconcerning for any emergent or surgical issues. I disclose low concern for compartment syndrome, deep venous thrombosis or other potentially life or limb threatening diagnoses given presentation and work-up today. As such, continued supportive care practices that should include rest, ice, use of bilateral compression socks, and elevation of the feet should occur with close outpatient follow-up by primary care physician for continued diagnostic work-up and treatment as indicated. If any concerning signs or symptoms present prior to outpatient follow-up please do not hesitate to come back for repeat evaluation. It was a pleasure to take care of you and I wish you the best going forward EMMA FARLEY DO Mar 26, 2021 14:34
--- NOTE | 2021-03-26 16:43 | RAD ---
INDICATION: Reason: R/O DVT, POSTERIOR PAIN AND INC CIRCUM / Spl. Instructions: / History: COMPARISON: September 2016 TECHNIQUE: Grayscale, color and doppler ultrasound images were obtained of the left lower extremity v enous vasculature. LEFT: No thrombus identified in the common femoral vein, femoral vein, popliteal vein or visualized calf ve ins. Edema of soft tissues IMPRESSION: * No thrombus identified in deep venous system of the left lower extremity. * Large amount of edema within the soft tissues. Regions appear confluent. Electronically signed by: Srini Jamison MD (03/26/2021 4:40 PM) [id number]
[2021-03-26 18:34] VITALS: BP 145/67
== END 2021-03-26 18:34 | disposition home or self-care (01) ==
LOC: ER 14:21
DX: M79.605 Pain in left leg (principal); I48.91 Unspecified atrial fibrillation; E78.00 Pure hypercholesterolemia, unspecified; I10 Essential (primary) hypertension; E03.9 Hypothyroidism, unspecified; Z95.0 Presence of cardiac pacemaker; Z88.0 Allergy status to penicillin; Z88.1 Allergy status to other antibiotic agents; Z88.5 Allergy status to narcotic agent; Z91.040 Latex allergy status; Z88.8 Allergy status to other drugs, medicaments and biological substances
CPT/HCPCS: 93971; 99285-25

== ENCOUNTER → 2021-07-21 | Outpatient (CLI) | payer MEDICARE ==
[~2021-07-21] MED LIST changes: +ACET500T68 PO; +APIX5TAB PO; +ASCO500C PO; +CARV6.2511 PO; +CHOL5000 PO; -DIPH50CA25 PO; +DIPH50CA53 PO; +HYDR-2868 PO; +NITR0.4T22 SL; +POLY17PO29 PO; +POTA-121 PO
--- NOTE | 2021-07-21 12:34 | PDOC1 ---
INITIAL PAIN CONSULT DATE OF SERVICE: DOS: DATE: 07/21/21 TIME: 12:23 CHIEF COMPLAINT: Chief Complaint: Low back and right lower extremity pain HISTORY OF PRESENT ILLNESS: 86-year-old female presents with history of pain low back and right lower extremity for approximately 2 months not the result of any specific injury or accident but she was helping her who had a stroke at home when he was in need of transferring it helped and she was helping lift him and helping him perform his physical therapy, and while lifting he felt significant pain in the low back and now radiating to the right lower extremity. Patient report is in the posterior gluteus lateral thigh anterior thigh medial thigh medial lower leg and into the knee on the right side as well. Patient reports no loss of motor function but significant fatigability now on the right leg is getting worse over the past few weeks. Patient has been doing physical therapy exercises on her own as well and disease with her now over the past 2 weeks but the pain is not being any better patient is doing exercises and trying to walk daily which she is using a walker now because she feels unstable with ambulating. Patient reports the pain wakes her from sleep least once a night does not affect her bowel bladder control but does affect her ability to walk and again she is using a walker to ambulate. Patient reports better with sitting or laying down but again awaken her from sleep at least once a night patient reports is worse with walking standing changing positions patient describes pain as sharp and stabbing in the back and right leg aching and cold in the low back as well patient rates her disability rating 0-10 10 being the worst is a 7 family home responsibilities recreation social activity occupation and self-care and 1 with life support activities. Patient has been taking [id number] Tylenol as well as ibuprofen without significant reduction in pain. She did have an MRI scan lumbar spine showing compression fractures at T12 and L1 vertebrae age indeterminant, moderate to severe right and mild left neuroforaminal stenosis with small disc bulge at L3-4 with moderate disc osteophyte complex and ligamentum flavum thickening at L4-5 with mild spinal canal stenosis and moderate bilateral neuroforaminal stenosis as well as mild bilateral neuroforaminal stenosis at L5-S1. Patient reports no loss of motor function but significant debility of the lower extremity on the right side. PAST MEDICAL HISTORY: PMH: Hypertension, coronary artery disease, arthritis, depression, Snow's palsy PREVIOUS SURGERIES: Past Surgical Hx: Total normal hysterectomy, pacemaker placement, bilateral cataract extraction, total knee arthroplasty right and left, lumbar surgery, cholecystectomy, breast biopsies bilaterally CURRENT MEDICATIONS: Current Meds: Active Scripts Medications Dose Route/Sig Max Daily Dose Days Date Category Dose Instructions NITROGLYCERIN SubLingual (Nitroglycerin) 0.4 Mg Tab.subl 1 Tab SL UD 07/21/21 Reported 1st sign of attack; may repeat every 5 mins; if pain persists after 3 in 15 min, medical attention is recommended Hydralazine Hcl 25 Mg Tablet 1 Tab PO TID PRN 07/21/21 Reported Miralax (Polyethylene Glycol 3350) 17 Gm Powd.pack 1 Packet PO DAILY PRN 2 07/21/21 Reported dissolve in water Klor-Con M20 (Potassium Chloride) 20 Meq Tab.er.prt 1 Tab PO DAILY 30 07/21/21 Reported Acetaminophen 500 Mg Tablet 1 Tab PO PRN Q6HRS PRN 15 07/21/21 Reported Vitamin D3 (Vitamin D) 125 Mcg Capsule 1,000 Intlu PO DAILY 07/21/21 Reported 5,000 UNITS = 125 MCG Vitamin C (Ascorbic Acid) 500 Mg Capsule.er 1,000 Mg PO DAILY 07/21/21 Reported Eliquis (Apixaban) 5 Mg Tablet 5 Mg PO BID 07/21/21 Reported Carvedilol (Carvedilol) 6.25 Mg Tablet 6.25 Mg PO BIDWMEALS 07/21/21 Reported Amlodipine Besylate 2.5 Mg Tablet 2.5 Mg PO DAILY 05/20/19 Reported Clindamycin Hcl 300 Mg Capsule 600 Mg PO QID 7 09/05/16 Rx Melatonin 3 Mg Tablet 10 Mg PO HS 08/08/16 Reported Meds not given this hospital admission. May resume home medications as approved by Physician. Centrum Silver Tablet (Multivits-Min/Fa/Lycopene/Lut) 1 Each Tablet 1 Each PO DAILY 04/20/15 Reported LAST DOSE GIVEN: DATE:08-26-16 TIME:9:00 a.m. NEXT DOSE DUE: DATE:08-28-15 TIME:9:00 a.m. Calcium (Calcium Carbonate) 600 Mg Tablet 600 Mg PO BID 04/20/15 Reported Not given while in hosp. May resume at home as directed. Synthroid (Levothyroxine Sodium) 75 Mcg Tablet 75 Mcg PO DAILY 03/09/13 Reported LAST DOSE GIVEN: DATE:08-26-16 TIME:9:00 a.m. NEXT DOSE DUE: DATE:08-27-16 TIME:9:00 a.m. Furosemide 40 Mg Tablet 40 Mg PO DAILY 03/09/13 Reported LAST DOSE GIVEN: DATE:08-26-16 TIME:9:00 a.m. NEXT DOSE DUE: DATE:08-27-16 TIME:9:00 a.m. Simvastatin 20 Mg Tablet 20 Mg PO HS 03/08/13 Reported LAST DOSE GIVEN: DATE:08-26-16 TIME:9:00 p.m. NEXT DOSE DUE: DATE:08-27-16 TIME:9:00 p.m. ALLERGIES; Allergies: Coded Allergies: Docusate Potassium (Verified Allergy, Intermediate, 03/26/21) Flurazepam HCl (Verified Allergy, Intermediate, 03/26/21) Penicillins (Verified Allergy, Intermediate, 03/26/21) Pentazocine Lactate (Verified Allergy, Intermediate, 03/26/21) casanthranol (Verified Allergy, Intermediate, 03/26/21) codeine (Verified Allergy, Intermediate, 03/26/21) EMPIRIN #3 desipramine HCl (Verified Allergy, Intermediate, 03/26/21) docusate sodium (Verified Allergy, Intermediate, 03/26/21) gadopentetate dimeglumine (Verified Allergy, Intermediate, 03/26/21) imipramine (Verified Allergy, Intermediate, 03/26/21) phenolphthalein (Verified Allergy, Intermediate, 03/26/21) propoxyphene HCl (Verified Allergy, Intermediate, 03/26/21) zolpidem tartrate (Verified Allergy, Intermediate, 03/26/21) lincomycin (Verified Allergy, Unknown, 03/26/21) latex (Verified Adverse Reaction, Intermediate, 03/26/21) UTI FROM THE [employer] FAMILY HISTORY: Family Hx: Cancer and heart disease SOCIAL HISTORY: Social Hx: Patient does not drink alcohol does not smoke or use any illegal illicit or recreational drugs is lives with her spouse lives locally in [facility] and is currently retired. REVIEW OF SYSTEMS: ROS: Positive for those items mentioned in history of present illness, all systems are reviewed, otherwise negative ,and are complete full and well-documented on patient's chart. PHYSICAL EXAM: VS: Blood pressure is 131/68 pulse 69 respirations 18 temperature is 97.8 F height is 5 foot 7 inches weight is 175 pounds. PE: PHYSICAL EXAMINATION: GENERAL: The patient is awake, alert, oriented, appropriate, very pleasant in demeanor HEENT: Shows normocephalic, atraumatic. Extraocular movements are intact and symmetrical. Oral cavity: Mucous membranes moist and pink. NECK: Shows anterior throat supple without palpable lymphadenopathy noted. Swallow reflex symmetrical. CHEST: Shows normal on inspection. Breath sounds are clear bilaterally, distant but no rales rhonchi or wheezes auscultated. HEART: Shows S1, S2 clear. No murmurs auscultated. ABDOMEN: Soft, nontender, nondistended. No palpable organomegaly is noted. BACK: Shows spine grossly in the midline. Normal-appearing cervical lordotic curvature. There is mildly increased thoracic kyphosis, some flattening of the lumbar lordotic curvature. Lumbar paraspinous muscles show symmetrical on inspection, on palpation shows some moderate tenderness diffusely throughout the upper, middle and lower distribution of the paraspinous muscles bilaterally and also into the lower thoracic paraspinous musculature, firm and tender, but without specific trigger points, without radiation of pain. The patient has good rotational motion of the lumbar spine, both laterally as well as extension and flexion without significant difficulty. No tenderness over the spinous processes, sacrum or sacroiliac regions. EXTREMITIES: Lower extremities show deep tendon reflexes 1+ in the patellar and tendo calcaneus tendons. Motor exam is 4 on a scale of 5 with right dorsiflexion, extension, quadriceps and hamstring flexion and 5/5 on the left. Peripheral pulses are 1 posterior tibial. No peripheral edema is noted bilaterally. Lower extremities are warm and dry to touch, equal in color and appearance. Straight leg raise noted to be positive on the right about 45 degrees, left side is []. Gaenslen's and Abdirahman's maneuvers are negative bilaterally. The patient is able to stand, has difficulty standing from a seated position uses the walker to support herself and has a favoring gait favoring the right lower extremity with ambulation again using a walker with small deliberate steps. SKIN: Shows warm and dry, good turgor. No edema. No sores, rashes or bruising throughout. IMPRESSION: Impression: 86-year-old female with approximate 2-month history increasing pain low back right lower extremity, following a right-sided L3-4 dermatomal distribution, after helping her with rehab and therapy duties. MRI scan lumbar spine as noted Arthritis Hypertension Coronary artery disease Atrial fibrillation with anticoagulation therapy. Plan: Options were discussed with patient including continued physical therapies and medicine management as well as interventional techniques. Patient would like to pursue interventional techniques we discussed a lumbar epidural steroid injection using descriptions as well as anatomical models to describe the procedure. We will first check with patient's plywood layup line core layer to clear her for holding her Eliquis for 48 hours prior to potential procedure, also wait for preauthorization for patient with clinical L3-4 right sided lumbar radiculopathy. Once approved, patient will return to clinic for lumbar epidural steroid injection translaminar approach to the L3-4 level with fluoroscopic guidance. In meantime, patient continue with stretching strength exercises as well as oral analgesics as currently. LENKA LUIS MD Jul 21, 2021 12:34
== END | disposition home or self-care (01) ==
LOC: PNCL 08:08
PROVIDERS: ATTEND Anesthesiology
DX: M79.604 Pain in right leg (principal); M54.50 Low back pain, unspecified; I10 Essential (primary) hypertension; I25.10 Atherosclerotic heart disease of native coronary artery without angina pectoris; M19.90 Unspecified osteoarthritis, unspecified site; F32.9 Major depressive disorder, single episode, unspecified; Z90.49 Acquired absence of other specified parts of digestive tract; Z98.890 Other specified postprocedural states; Z79.899 Other long term (current) drug therapy; Z88.0 Allergy status to penicillin; Z88.5 Allergy status to narcotic agent; Z91.040 Latex allergy status; Z88.8 Allergy status to other drugs, medicaments and biological substances; Z82.49 Family history of ischemic heart disease and other diseases of the circulatory system
CPT/HCPCS: G0463